=== PATIENT | female | born 1970 | race Caucasian/White ===

== ENCOUNTER 2019-04-10 07:34 | Outpatient (CLI) | payer OTHER | END 2019-04-10 23:59 | disposition home or self-care (01) | LOC: CFH 07:34 | PROVIDERS: ATTEND Internal Medicine Cardiovascular Disease | DX: I35.1 Nonrheumatic aortic (valve) insufficiency (principal); I10 Essential (primary) hypertension; E78.2 Mixed hyperlipidemia; R94.31 Abnormal electrocardiogram [ECG] [EKG] | CPT/HCPCS: 75571; 78452; 93017; 93306; A9502 ==